=== PATIENT | female | born 2000 | race Caucasian/White ===

== ENCOUNTER 2023-10-23 23:54 | Emergency (ER) | payer BC ==
[2023-10-24 01:17] LABS: Absolute Eosinophils 0.1 K/uL (0-0.5); Absolute Lymphocytes (CBC) 2.1 K/uL (0.7-4.9); Absolute Monocytes 0.6 K/uL (0.1-1.3); Absolute Neutrophil 6.2 K/uL (1.8-8.0); Basophils % 0.3 % (0-1.3); Eosinophils % 0.7 % (0-4.4); Hematocrit 30.5 % (36.0-45.0); Hemoglobin 10.6 g/dL (12.0-15.0); Lymphocytes % 23.2 % (15.3-44.8); MCH 30.8 pg (27.0-35.0); MCHC 34.7 g/dL (32.0-36.0); MCV 88.8 fL (80-100); MPV 7.5 fL (7.6-11.3); Monocytes % 6.9 % (3.3-12.3); Neutrophils % 68.9 % (41.7-73.7); Nucleated Red Blood Cells % 0.1 % (0-0); Platelets 330 thou/uL (152-406); RBC Red Blood Cell Count 3.43 M/uL (3.86-4.86); Red Cell Distribution Width 13.1 % (12.1-15.2)
[2023-10-24 01:21] LABS: Specific Gravity 1.011 (1.005-1.030); Sqamous Epithelial <5 /HPF (None Seen); Urine Bacteria <20 /HPF (<20); Urine Bilirubin NEGATIVE (Negative); Urine Blood Negative (Negative); Urine Clarity Turbid (Clear); Urine Color Colorless (Yellow); Urine Culture Reflex Order NOT NEEDED; Urine Glucose NEGATIVE (Negative); Urine Ketones NEGATIVE (Negative); Urine Micro Reflex YN NO BILL MICROSCOPIC; Urine Mucus Slight /HPF (None Seen); Urine Nitrite NEGATIVE (Negative); Urine Protein NEGATIVE (Negative); Urine RBC None Seen /HPF (None Seen); Urine Urobilinogen Normal (Normal); Urine WBC <5 /HPF (<5)
[2023-10-24 01:26] LABS: Albumin 2.6 g/dL (3.4-5.0); Albumin/Globulin Ratio 0.7 (1.1-1.8); Anion Gap 9.8 mEq/L (5.0-15.0); Bilirubin Total 0.2 mg/dL (0.2-1.0); Potassium 3.8 mEq/L (3.5-5.1); Protein, Total 6.6 g/dL (6.4-8.2)
[2023-10-24] MEDS ORDERED: NA CHLORIDE 0.9% 1,000 ML ONE (01:46)
[2023-10-24] MEDS ORDERED: ACETAMINOPHEN 500 MG TAB ONE (01:46)
--- NOTE | 2023-10-24 02:28 | EDPHYS ---
Physician Documentation [facility] Name: Abbey Ferreira Age: 23 yrs Sex: Female : 2000 Arrival Date: 10/23/2023 Time: 23:54 Bed 5 Private MD: ED Physician Adalid Penny HPI: 10/23 00:07 This 23 yrs old Female presents to ER via Unassigned with complaints of sp4 Abdominal Cramping, Vaginal Bleeding, 32 WEEKS PREG. 00:13 23-year-old female G1, P0 at 32 weeks EGA by sonogram. LMP 03/24/2023. EGA by LMP 30 sp4 weeks 4-days, presents with acute onset lower back pain also mucous to bloody discharge vaginally. Denied amniotic fluid gush. . 00:17 Patient reports a 20-30 she has passed a blood clot. Patient's NURSE MONITORING is Dr. Rc Nicholas at [facility] tel [phone]. NURSE MONITORING: 00:14 1, Full Term 0, Premature 0, 0, Living 0, LMP 03/24/2023, cm10 Verified, EDC 12/29/2023, Gestational age from LMP: 30 weeks 4 days Historical: - Allergies: 00:14 No Known Allergies; cm10 - Home Meds: 00:14 None [Active]; cm10 - PMHx: 00:14 None; cm10 - PSHx: 00:14 None; cm10 - Immunization history:: Adult Immunizations up to date. - Infectious Disease History:: Denies. - Social history:: Smoking status: Patient denies any tobacco usage or history of. - Family history:: not pertinent. ROS: 02:20 Constitutional: Negative for fever, chills, and weight loss, positive for back pain , sp4 positive for bleeding, positive for passing blood clot 02:20 All other systems are negative, Exam: 02:22 Constitutional: This is a well developed, well nourished patient who is awake, alert, sp4 and in no acute distress. Head/Face: Normocephalic, atraumatic. Eyes: Pupils equal round and reactive to light, extra-ocular motions intact. Lids and lashes normal. Conjunctiva and sclera are not injected. Cornea within normal limits. Periorbital areas with no swelling, redness, or edema. ENT: Nares patent. No nasal discharge, no septal abnormalities noted. Tympanic membranes are normal and external auditory canals are clear. Oropharynx with no redness, swelling, or masses, exudates, or evidence of obstruction, uvula midline. Mucous membranes moist. Neck: Trachea midline, no thyromegaly or masses palpated, and no cervical lymphadenopathy. Supple, full range of motion without nuchal rigidity, or vertebral point tenderness. Chest/axilla: Normal chest wall appearance and motion. Nontender with no deformity. No lesions are appreciated. Cardiovascular: Regular rate and rhythm with a normal S1 and S2. No gallops, murmurs, or rubs. Normal PMI, no JVD. No pulse deficits. Respiratory: Lungs have equal breath sounds bilaterally, clear to auscultation and percussion. No rales, rhonchi or wheezes noted. No increased work of breathing, no retractions or nasal flaring. Abdomen/GI: Soft, with normal bowel sounds. No distension or tympany. No guarding or rebound. No evidence of tenderness throughout. Back: No spinal tenderness. No costovertebral tenderness. Pelvic Exam: Normal external genitalia. Speculum exam with closed cervical os, no discharge or bleeding noted. Small amount of white to yellow vaginal discharge appears more than physiologic discharge Skin: Warm, dry with normal turgor. Normal color with no rashes, no lesions, and no evidence of cellulitis. MS/ Extremity: Pulses equal, no cyanosis. Neurovascular intact. Full, normal range of motion. Neuro: Awake and alert, GCS 15, oriented to person, place, time, and situation. Cranial nerves II-XII grossly intact. Motor strength 5/5 in all extremities. Sensory grossly intact. Psych: Awake, alert, with orientation to person, place and time. Behavior, mood, and affect are within normal limits Vital Signs: 00:12 BP 137 / 81; Pulse 102; Resp 18; Temp 98.3; Pulse Ox 100% on R/A; Weight 112 kg; Pain cm10 3/10; 02:33 BP 112 / 76; Pulse 84; Resp 16; Pulse Ox 96% on R/A; jb4 00:12 Pain Scale: Adult cm10 MDM: 00:18 Patient medically screened. sp4 02:20 ED course: EXAM: US , Limited CLINICAL HISTORY: The patient is 23 years old sp4 and is Female; 32 weeks TECHNIQUE: Real-time limited ultrasound of the maternal uterus with image documentation. COMPARISON: No relevant prior studies available. FINDINGS: GESTATIONAL AGE: Gestational age is 30 weeks 4 days based on single femur length. POSITION: A single intrauterine gestation is present. presentation is cephalic. HEART RATE: heart rate is 149 bpm. PLACENTA: The placenta is posterior in location. AMNIOTIC FLUID: ELIZABETH 17.4 cm. ADNEXA: The adnexa is unremarkable. IMPRESSION: Single IUP at 30 weeks 4 days with heart rate 149 bpm. Electronically signed by: Katrin Nielsen MD 10/24/2023 01:11 AM. 02:24 Differential diagnosis: Daniel brower, STD, Data reviewed: vital signs, nurses notes, sp4 lab test result(s), radiologic studies, ultrasound. Consideration of Admission/Observation Escalation of care including admission/observation considered. ED course: Pelvic exam reveals no bleeding, closed cervical os, no signs of labor. Ultrasound is unremarkable. EGA estimated at 30 weeks 4 days. Patient has significant amount of white to yellow vaginal discharge which may be sign of bacterial vaginosis. Will treat with Flagyl BID for 7 days. . 10/23 00:07 Order name: Abo/rh Typing; Complete Time: 01:43 sp4 10/23 00:08 Order name: CBC with Diff; Complete Time: 01:21 sp4 10/23 00:08 Order name: CMP; Complete Time: 01:36 sp4 10/23 00:18 Order name: Urinalysis W/Microscopic; Complete Time: 01:21 sp4 10/23 00:07 Order name: US OB Limited sp4 10/23 00:07 Order name: Pelvic Exam Setup; Complete Time: 00:18 sp4 10/23 00:08 Order name: IV Saline Lock; Complete Time: 01:07 sp4 10/23 00:08 Order name: Labs collected and sent; Complete Time: 01:07 sp4 Administered Medications: 02:00 Drug: NS 0.9% IV 1000 ml IV at 1 bolus Per protocol; 1000 mL bolus Route: IV; Rate: 1 jb4 bolus; Site: right hand; 02:41 Follow up: Response: No adverse reaction; Marked relief of symptoms; IV Status: Order jb4 to discontinue infusion; IV Intake: 800ml 02:00 Drug: Acetaminophen PO 1000 mg PO once Route: PO; jb4 02:41 Follow up: Response: No adverse reaction; Marked relief of symptoms jb4 Disposition Summary: 10/24/23 02:27 Discharge Ordered Notes: We advise to continue care with Dr. Tatum as scheduled. Location: Home sp4 Problem: new sp4 Symptoms: have improved sp4 Condition: Stable sp4 Diagnosis - Acute vaginitis sp4 - 30 weeks gestation of sp4 Followup: sp4 - With: Private Physician - When: 7 - 10 days - Reason: Recheck today's complaints Discharge Instructions: - Discharge Summary Sheet sp4 - Vaginitis, [id number] sp4 Forms: - Patient Portal Instructions sp4 Prescriptions: - Flagyl 500 mg Oral Tablet - take 1 tablet ORAL route every 12 hours for 7 days; 14 tablet; Refills: 0, sp4 Product Selection Permitted Signatures: Dispatcher [employer] Josue Lewis, RN RN jb4 Adalid Penny MD MD sp4 Dee Orosco RN RN cm10 Corrections: (The following items were deleted from the chart) 00:19 00:19 Urinalysis W/Microscopic+U.LAB.BRZ ordered. EDMS EDMS
--- NOTE | 2023-10-24 02:28 | ER ---
Nurse's Notes [facility] Name: Abbey Ferreira Age: 23 yrs Sex: Female : 2000 Arrival Date: 10/23/2023 Time: 23:54 Bed 5 Private MD: Diagnosis: Acute vaginitis;30 weeks gestation of Presentation: 10/23 00:12 Chief complaint: Patient states: Back pain, abdominal cramping, pink discharge and cm10 passing of blood clot onset tonight at 2230. Pt approximately 32 weeks . Coronavirus screen: Client denies travel out of the [place] in the last 14 days. At this time, the client does not indicate any symptoms associated with coronavirus-19. Ebola Screen: Patient denies travel to an Ebola-affected area in the 21 days before illness onset. No symptoms or risks identified at this time. Initial Sepsis Screen: Does the patient meet any 2 criteria? HR > 90 bpm. Does the patient have a suspected source of infection? No. Patient's initial sepsis screen is negative. Risk Assessment: Do you want to hurt yourself or someone else? Patient reports no desire to harm self or others. Onset of symptoms was October 24, 2023. 00:12 Method Of Arrival: Ambulatory cm10 00:12 Acuity: ELA 3 cm10 BELT PICKER: 00:14 1, Full Term 0, Premature 0, 0, Living 0, LMP 03/24/2023, cm10 Verified, EDC 12/29/2023, Gestational age from LMP: 30 weeks 4 days Historical: - Allergies: 00:14 No Known Allergies; cm10 - Home Meds: 00:14 None [Active]; cm10 - PMHx: 00:14 None; cm10 - PSHx: 00:14 None; cm10 - Immunization history:: Adult Immunizations up to date. - Infectious Disease History:: Denies. - Social history:: Smoking status: Patient denies any tobacco usage or history of. - Family history:: not pertinent. Screenin:09 [facility] ED Fall Risk Assessment (Adult) History of falling in the last 3 months, jb4 including since admission No falls in past 3 months (0 pts) Confusion or Disorientation No (0 pts). Abuse screen: Denies threats or abuse. Nutritional screening: No deficits noted. Tuberculosis screening: No symptoms or risk factors identified. Assessment: 00:58 General: Appears in no apparent distress. comfortable, Behavior is calm, cooperative, jb4 appropriate for age. Pain: Complains of pain in abdomen Pain does not radiate. Pain currently is 3 out of 10 on a pain scale. Quality of pain is described as crampy. Neuro: Level of Consciousness is awake, alert, obeys commands, Oriented to person, place, time, situation. Cardiovascular: Patient's skin is warm and dry. Respiratory: Airway is patent Respiratory effort is even, unlabored, Respiratory pattern is regular, symmetrical. GI: Abdomen is round non-distended. : No signs and/or symptoms were reported regarding the genitourinary system. EENT: No signs and/or symptoms were reported regarding the EENT system. Derm: Skin is intact, Skin is pink, warm \T\ dry. Musculoskeletal: Circulation, motion, and sensation intact. Range of motion: intact in all extremities. 02:33 Reassessment: Patient appears in no apparent distress at this time. Patient and/or jb4 family updated on plan of care and expected duration. Pain level reassessed. Patient is alert, oriented x 3, equal unlabored respirations, skin warm/dry/pink. Vital Signs: 00:12 BP 137 / 81; Pulse 102; Resp 18; Temp 98.3; Pulse Ox 100% on R/A; Weight 112 kg; Pain cm10 3/10; 02:33 BP 112 / 76; Pulse 84; Resp 16; Pulse Ox 96% on R/A; jb4 00:12 Pain Scale: Adult cm10 ED Course: 00:03 Patient arrived in ED. gm2 00:06 Adalid Penny MD is Attending Physician. sp4 00:14 Triage completed. cm10 00:14 Arm band placed on Patient placed in an exam room, on a stretcher. cm10 00:48 US OB Limited In Process Unspecified. EDMS 00:58 Initial lab(s) drawn, by me, sent to lab. Urine collected: clean catch specimen, clear. jb4 Inserted saline lock: 20 gauge in left hand, using aseptic technique. Blood collected. 01:08 CMP Sent. jb4 01:08 CBC with Diff Sent. jb4 01:08 Urinalysis W/Microscopic Sent. jb4 01:25 Called After Hours call center for Dr. Tatum for consult, awaiting call back from Dr. medel 02:08 Called after hours service again to repage Dr. Tatum. rv1 02:44 Patient has correct armband on for positive identification. Bed in low position. Call jb4 light in reach. Side rails up X 1. Provided Education on: discharge instructions. 02:44 No provider procedures requiring assistance completed. IV discontinued, intact, jb4 bleeding controlled, No redness/swelling at site. Pressure dressing applied. Administered Medications: 02:00 Drug: NS 0.9% IV 1000 ml IV at 1 bolus Per protocol; 1000 mL bolus Route: IV; Rate: 1 jb4 bolus; Site: right hand; 02:41 Follow up: Response: No adverse reaction; Marked relief of symptoms; IV Status: Order jb4 to discontinue infusion; IV Intake: 800ml 02:00 Drug: Acetaminophen PO 1000 mg PO once Route: PO; jb4 02:41 Follow up: Response: No adverse reaction; Marked relief of symptoms jb4 Intake: 02:41 IV: 800ml; Total: 800ml. jb4 Outcome: 02:27 Discharge ordered by MD. hayes 02:44 Discharged to home ambulatory, with family, jb4 02:44 Condition: stable 02:44 Discharge instructions given to patient, Instructed on discharge instructions, follow up and referral plans. medication usage, Demonstrated understanding of instructions, follow-up care, medications, Prescriptions given X 1, 02:48 Patient left the ED. jb4 Signatures: Dispatcher [employer] EDMS Josue Anthony RN RN jb4 Lexy Jalloh rv1 Adalid Penny MD MD sp4 Dee Orosco RN RN cm10 Liza Freedman 2
[2023-10-24 03:36] VITALS: BP 112/76; TEMP 98.3; O2SAT 96
--- NOTE | 2023-10-24 11:52 | RAD REPORT ---
EXAM DESCRIPTION: US - OB Limited - 10/24/2023 12:46 am CLINICAL HISTORY: The patient is 23 years old and is Female; 32 weeks TECHNIQUE: Real-time limited ultrasound of the maternal uterus with image documentation. COMPARISON: No relevant prior studies available. FINDINGS: GESTATIONAL AGE: Gestational age is 30 weeks 4 days based on single femur length. POSITION: A single intrauterine gestation is present. presentation is cephalic. HEART RATE: heart rate is 149 bpm. PLACENTA: The placenta is posterior in location. AMNIOTIC FLUID: ELIZABETH 17.4 cm. ADNEXA: The adnexa is unremarkable. IMPRESSION: Single IUP at 30 weeks 4 days with heart rate 149 bpm. Electronically signed by: Katrin Nielsen MD 10/24/2023 01:11 AM CDT Due to temporary technical issues with the PACS/Fluency reporting system, reports are being signed by the in house radiologist without review as a courtesy to ensure prompt reporting. The interpreting r adiologist is fully responsible for the content of the report.
== END 2023-10-24 02:48 | disposition home or self-care (01) ==
LOC: ER 23:54
DX: O99.891 Other specified diseases and conditions complicating pregnancy (principal); N76.0 Acute vaginitis; Z3A.30 30 weeks gestation of pregnancy
CPT/HCPCS: 85025; 81001; 36415; 86900; 86901; 80053; 76815; 96360; 99284; J7030